=== PATIENT | male | born 1985 | race Two or more races ===

== ENCOUNTER 2023-02-14 10:05 | Day surgery (SDC) | payer OTHER ==
[2023-02-13 09:22] LABS: Urine WBC None Seen /hpf (0 - 3)
[2023-02-13 09:50] LABS: Basophils # (auto) 0 10 ^3/uL (0-0.2); Basophils % (auto) 0.7 % (0.0-2.0); Eosinophils # (auto) 0.1 10 ^3/uL (0-0.8); Eosinophils % (auto) 1.3 % (0.0-7.0); Hematocrit 45.3 % (41.0-53.0); Hemoglobin 15.4 g/dL (13.5-17.5); Lymphocytes # (auto) 1.5 10 ^3/uL (0.4-5.4); Lymphocytes % (auto) 34.5 % (10.0-50.0); Mean Corpuscular Hemoglobin 30.3 pg (28.0-32.0); Mean Corpuscular Hgb Conc. 33.9 g/dL (32.0-36.0); Mean Corpuscular Volume 89.5 fL (80.0-100.0); Monocytes # (auto) 0.4 10 ^3/uL (0-1.3); Monocytes % (auto) 8.8 % (0.0-12.0); Neutrophils # (auto) 2.3 10 ^3/uL (1.6-8.6); Neutrophils % (auto) 54.7 % (37.0-80.0); Nucleated Red Blood Cells % 0.1 %; Red Blood Cells 5.06 10^6/uL (4.5-5.90); Red Cell Distribution Width 12.7 % (11.8-14.3); White Blood Cell 4.2 10^3/uL (4.4-10.8)
[2023-02-13 09:53] LABS: Urine Bacteria NONE SEEN /hpf (None Seen); Urine Blood Negative /uL (Negative); Urine Specific Gravity 1.012 (1.001-1.035)
[2023-02-13 10:09] LABS: INR 0.97 (0.9-1.15); Partial Thromboplastin Time 28.2 sec (24.6-33.4)
[2023-02-13 10:57] LABS: Potassium 4.6 mmol/L (3.5-5.1)
[2023-02-13 11:11] LABS: Albumin 3.9 g/dL (3.4-5.0); BUN/Creatinine Ratio 16.3 (10.0-20.0); Bilirubin, Total 0.6 mg/dL (0.2-1.0); Calcium 9.2 mg/dL (8.5-10.1); Total Protein 7.6 g/dL (6.4-8.2)
[~2023-02-14] VITALS: Ht 188 cm; Wt 86.2 kg
[2023-02-14] MEDS ORDERED: KETAMINE 50mg/ML 10ml Vial (500mg/10ml) IV ONE (10:06)
[2023-02-14] MEDS ORDERED: PROPOFOL 10 MG/ML 20 ML IV ONE ×2 (10:26→11:21)
[2023-02-14] MEDS ORDERED: KETOROLAC TROMETH 30 MG/ML 1ML VIAL ONE (10:27)
[2023-02-14] MEDS ORDERED: ONDANSETRON HCL 4 MG/2 ML VIAL ONE (10:27)
[2023-02-14] MEDS ORDERED: DexAMETHasone SOD PHOS 10MG/1ML VIAL INJ ONE (10:27)
[2023-02-14] MEDS ORDERED: LIDOCAINE 1% (LOCAL ANESTH.) PF 5ml SDV ONE (10:27)
[2023-02-14] MEDS ORDERED: GLYCOPYRROLATE 0.2 MG/ML 1ML VIAL ONE (10:27)
[2023-02-14] MEDS ORDERED: LIDOCAINE W/ EPINEPHRINE 1% 20ML VIAL ONE (10:49)
[2023-02-14] MEDS ORDERED: CIPROFLOXACIN 400MG/200ML 200 ML IV ONE (10:54)
[2023-02-14 12:04] VITALS: BP 118/78
== END 2023-02-14 12:15 | disposition home or self-care (01) ==
LOC: SUR 10:05
PROVIDERS: ATTEND Urology
DX: Z30.2 Encounter for sterilization (principal); Z20.822 Contact with and (suspected) exposure to COVID-19
CPT/HCPCS: 36415; 55250; 80053; 81001; 85025; 85610; 85730; 87086; 88305; J0744; J1100; J1885; J2405; J2704; U0003